=== PATIENT | male | born 1995 | race Caucasian/White ===

== ENCOUNTER 2016-04-11 06:59 | Emergency (ER) | payer OTHER ==
[~2016-04-11] VITALS: Ht 172.7 cm; Wt 118.0 kg
[2016-04-11 07:01] VITALS: TEMP 37.1; Ht 172.7 cm; Wt 118.0 kg
[2016-04-11] MEDS ORDERED: ACETAMINOPHEN 500 MG TAB PO STA (07:17)
[2016-04-11] MEDS ORDERED: IBUPROFEN 600 MG TAB PO STA (07:17)
--- NOTE | 2016-04-11 07:48 | DIAGNOSTIC IMAGING REPORT ---
L-SPINE MIN 4 VIEWS ROUTINE CLINICAL HISTORY: Low back pain COMPARISON STUDY: No previous studies for comparison. FINDINGS: There is no pathologic bowel dilatation. There is surgical clip within the right upper quadrant. There are 5 lumbar type vertebral bodies present. There is a grade 1 spondylolisthesis of L4 on L5. 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 There is disc space narrowing at the L4-5 level. IMPRESSION: 1. Grade 1 spondylolisthesis of L4 on L5. Equivocal L4 pars defect. 2. Disc space narrowing at the L4-5 level. 3. L5 limbus vertebra Electronically signed by: Les Sanchez M.D. 04/11/2016 7:47 AM Dictated Date/Time: 04/11/2016 7:45 AM
[2016-04-11 08:24] LABS: URINE APPEARANCE CLEAR (CLEAR); URINE BILIRUBIN NEG (NEG); URINE COLOR YELLOW; URINE EPITHELIAL CELL AUTO 20-30 /lpf (0-5); URINE NITRITE NEG (NEG); URINE PH 5.5 (4.5-7.5); URINE SPECIFIC GRAVITY 1.018 (1.000-1.030); UROBILINOGEN NEG (NEG); ZZUR CULT IF INDIC CLEAN CATCH YES
[2016-04-11 08:28] VITALS: BP 128/74; PULSE 78; O2SAT 99
[2016-04-11 08:28] LABS: MANUAL MICROSCOPIC REQUIRED? NO; REVIEW REQ? NO
--- NOTE | 2016-04-11 08:39 | EMERGENCY ROOM VISIT NOTE ---
History First contact with patient: 07:05 Chief Complaint: BACK PAIN Stated Complaint: BACK PAIN-KIDNEY AREA,NOSE BLEED History of Present Illness The patient is a 20 year old male who presents to the Emergency Room with complaints of low back pain for the past few days. The patient does not recall injury or trauma to explain his symptoms. He does not have numbness or paresthesias. He does not have a history of chronic low back pain. He does state that he has a history of urethral strictures and follows with urology. He states his urine has been more concentrated than normal and is concerned about a possible kidney infection. The patient has not had fever or dysuria. No chest pain, chest tightness, shortness of breath, or abdominal pain. The patient also states that he has had 2 small nosebleeds over the past 2 days of unknown significance. He rates his overall discomfort a 5/10 and is not taken anything [id number] for his discomfort. Review of Systems More than 10 systems were reviewed and otherwise negative with the exception of history of present illness. Past Medical/Surgical History No chronic medical disease Family History No pertinent family history Social History Smoking Status: Never Smoker Occupation Status: [employer] student Current/Historical Medications No Active Prescriptions or Reported Meds Allergies Coded Allergies: NO KNOWN DRUG ALLERGIES (Verified Allergy, Unknown, ., 12/13/15) Physical Exam Vital Signs Date Time Temp Pulse Resp B/P Pulse Ox O2 Delivery O2 Flow Rate FiO2 04/11/16 07:01 37.1 109 18 141/90 98 Room Air Physical Exam VITALS: Vitals are noted on the nurse's note and reviewed by myself. Vital signs stable. GENERAL: Well-developed, well-nourished, male, who is in no acute distress and resting comfortably. Patient is cooperative with the examination. HEAD: Normocephalic atraumatic. EARS: External ear normal. External auditory canals clear, tympanic membranes pearly coleman without erythema or effusion bilaterally. EYES: Pupils equal round and reactive to light and accommodation. Conjunctivae without injection, sclerae without icterus. Extraocular movements intact. NOSE: Patent, turbinates without inflammation or discharge. No epistaxis noted MOUTH: Mucous membranes moist. Tonsils are not enlarged. Pharynx without erythema, blood, or exudate. Uvula midline. Airway patent. NECK: Supple without nuchal rigidity. No lymphadenopathy. No thyromegaly. Cervical spine is nontender. HEART: Regular rate and rhythm without murmurs gallops or rubs. LUNGS: Clear to auscultation bilaterally without wheezes, rales or rhonchi. No retractions or accessory muscle use. ABDOMEN: Positive normal bowel sounds x 4. Soft, nontender, without masses or organomegaly. No guarding or rebound tenderness. No CVA tenderness. MUSCULOSKELETAL: No muscle atrophy, erythema, or edema noted. Full range of motion without joint tenderness in all extremities. Negative straight leg raise. No significant palpable tenderness. NEURO: Patient was alert and oriented to person place and time. CN II through XII grossly intact. Deep tendon reflexes 2+ throughout. Medical Decision & Procedures ER Provider Diagnostic Interpretation: L-SPINE MIN 4 VIEWS ROUTINE CLINICAL HISTORY: Low back pain COMPARISON STUDY: No previous studies for comparison. FINDINGS: There is no pathologic bowel dilatation. There is surgical clip within the right upper quadrant. There are 5 lumbar type vertebral bodies present. There is a grade 1 spondylolisthesis of L4 on L5. 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 There is disc space narrowing at the L4-5 level. IMPRESSION: 1. Grade 1 spondylolisthesis of L4 on L5. Equivocal L4 pars defect. 2. Disc space narrowing at the L4-5 level. 3. L5 limbus vertebra Laboratory Results Test 04/11/16 08:15 Medications Administered Medications (Trade) Dose Ordered Sig/Harpreet Route Start Time Stop Time Status Last Admin Dose Admin Acetaminophen (Tylenol Tab) 1,000 mg NOW STAT PO 04/11/16 07:17 04/11/16 07:18 DC 04/11/16 07:24 1,000 MG Ibuprofen (Motrin Tab) 600 mg NOW STAT PO 04/11/16 07:17 04/11/16 07:18 DC 04/11/16 07:23 600 MG ED Course Physical exam and history were performed. Nursing notes and EMR were reviewed. Patient appears to have both low back pain and concerns for a urinary tract/ kidney infection. The patient does not appear toxic on examination. He does not have CVA tenderness or neurologic deficit. He does not have a history of previous imaging. The patient was provided ibuprofen and Tylenol by mouth. Urinalysis was collected. X-ray was performed. The patient's x-ray does not show significant acute findings. He does appear to have grade 1 spondylolisthesis, and on conversation with the patient he has had intermittent back pain for the past 9 years. Urinalysis does not suggest UTI. Clinically I suspect his symptoms are muscular skeletal in nature and should improve with conservative management. The patient may wish to follow with his primary care physician or rheumatology. He was otherwise asked to use [id number] analgesics and was invited back to the ER with any new, worsening, or concerning symptoms. The chart was completed utilizing [employer] Speech Voice Recognition Software. Grammatical errors, random word insertions, pronoun errors, and incomplete sentences are an occasional consequence of this system due to software limitations, ambient noise, and hardware issues. Any formal questions or concerns about the content, text, or information contained within the body of this dictation should be directly addressed to the provider for clarification. . Medical Decision Differential diagnosis: Etiologies such as musculoskeletal, disc herniation, fracture, aortic disease, metastatic disease, cord compression, discitis, infection, renal colic, gastrointestinal, acute exacerbation of chronic back pain, sciatica, cauda equina, as well as others were entertained. Impression Primary Impression: Low back pain Additional Impression: Symptoms involving urinary system Departure Information Prescriptions No Active Prescriptions or Reported Meds Referrals No Doctor, Assigned (PCP) Patient Instructions My [facility] Problem Qualifiers
== END 2016-04-11 08:30 | disposition home or self-care (01) ==
LOC: C.EDB 07:00 → C.EDA 08:30
DX: M54.5 Low back pain (principal); R39.9 Unspecified symptoms and signs involving the genitourinary system

== ENCOUNTER 2016-04-11 18:00 | Emergency (ER) | payer OTHER ==
[~2016-04-11] VITALS: Ht 172.7 cm; Wt 119.9 kg
[2016-04-11 18:07] VITALS: TEMP 37.1; Ht 172.7 cm; Wt 119.9 kg
[2016-04-11] MEDS ORDERED: LORAZEPAM 0.5 MG TAB PO STA (18:25)
[2016-04-11 18:44] LABS: BASO % 0.3 %; BASO ABS # 0.03 K/uL (0-0.2); COMPLETE YES; EOS % 1.1 %; HEMATOCRIT 47.4 % (42-52); IG% 0.8 %; LYMPH % 29.3 %; LYMPH ABS # 3.27 K/uL (1.2-3.4); MEAN CORPUSCULAR HEMOGLOBIN 27.7 pg (25-34); MEAN PLATELET VOLUME 9.2 fL (7.4-10.4); NEUT % 63.5 %; PLATELET COUNT 305 K/uL (130-400); WHITE BLOOD COUNT 11.15 K/uL (4.8-10.8)
--- NOTE | 2016-04-11 18:57 | DIAGNOSTIC IMAGING REPORT ---
CHEST ONE VIEW PORTABLE HISTORY: Atypical Chest pain and dyspnea COMPARISON: None. FINDINGS: There are low lung volumes. The lungs are clear. The heart is normal in size. No pleural effusions. No pneumothorax. IMPRESSION: No acute process. Electronically signed by: Tc Ramírez M.D. 04/11/2016 6:55 PM Dictated Date/Time: 04/11/2016 6:54 PM
[2016-04-11 19:08] LABS: BLOOD UREA NITROGEN 10 mg/dl (7-18); BUN/CREATININE RATIO 10.3 (10-20); CALCIUM 8.9 mg/dl (8.5-10.1); CARBON DIOXIDE 26 mmol/L (21-32); CHLORIDE 103 mmol/L (98-107); SODIUM 138 mmol/L (136-145)
[2016-04-11 19:09] LABS: GLUCOSE 153 mg/dl (70-99)
[2016-04-11 20:17] LABS: MAGNESIUM 2.2 mg/dl (1.8-2.4); POTASSIUM 3.6 mmol/L (3.5-5.1)
--- NOTE | 2016-04-11 21:24 | EMERGENCY ROOM VISIT NOTE ---
History First contact with patient: 18:14 Chief Complaint: NOSE BLEED (MINOR) Stated Complaint: NOSE BLEED,HEART PAIN,ARM PAIN,LIGHT HEADED History of Present Illness The patient is a 20 year old male who presents to the Emergency Room via private vehicle with complaints of "nosebleed, heart pain, arm pain, lightheaded ". Patient states that he was here earlier today for back pain. He notes that is nearly resolved, and he went to his scheduled appointment with the infectious disease doctor for your plasma/STD check. He states that his blood pressure was elevated at that time with a systolic in the range of 150. He was told by the nurse that took the blood pressure that this was too high. He became concerned, and on his way in this direction stopped at a pharmacy and inquired about blood pressure with the pharmacist. He said that he was expressing nosebleeds, had a mild headache and high blood pressure in the pharmacist directed him towards the emergency department here today. Patient notes that he does have a history of generalized anxiety disorder, and shortly after talking with the pharmacist he is developed pressure on the left anterior chest,. He also had a nosebleed earlier today which is the third time total in the past 3 days. He feels as though his heart is weird inside his chest. He also notes his hands feel weird. He notes that he has had chest pain as far back as February, and has had 2 of these episodes. He also notes lightheadedness. There is been no trauma to the nose. He notes sometimes he will feel this way but notes he has never had an anxiety attack. Review of Systems A complete 10-point Review of Systems was discussed with the patient, with pertinent positives and negatives listed in the History of Present Illness. All remaining Review of Systems questions can be considered negative unless otherwise specified. Past Medical/Surgical History Skin problems, urinary problems. History of urinary stricture. Family History Diabetes, high blood pressure. Social History Smoking Status: Never Smoker Occupation Status: [employer] student Social History: Patient is a [employer] student, denies alcohol and tobacco use. Current/Historical Medications No Active Prescriptions or Reported Meds Allergies Coded Allergies: NO KNOWN DRUG ALLERGIES (Verified Allergy, Unknown, ., 04/11/16) Physical Exam Vital Signs Date Time Temp Pulse Resp B/P Pulse Ox O2 Delivery O2 Flow Rate FiO2 04/11/16 21:27 103 18 158/86 97 04/11/16 20:07 107 18 154/82 100 Room Air 04/11/16 18:07 37.1 110 18 143/93 98 Room Air Physical Exam VITAL SIGNS - Vital signs and nursing notes were reviewed. Patient is afebrile , slightly hypertensive at 143/93, he is tachycardic at a rate of 110 bpm, and is saturating well on room air at 98%. GENERAL -20-year-old male appearing his stated age who is in no acute distress. Patient is nontoxic in appearance, and communicates without difficulty. Ambulatory without difficulty. He converses with full sentences. There is no shortness of breath. Communicates well with provider and answers questions appropriately. SKIN - Without rashes. No petechial rashes. HEAD - NC/AT. EYES - PERRL with EOMI bilaterally. Sclera anicteric. Palpebral conjunctiva pink and moist with no injection noted. EARS - No deformities of external structures noted on gross examination bilaterally. No pain elicited with palpation of the tragus bilaterally. External auditory canals without discharge or otorrhea. Tympanic membranes pearly coleman without retraction or bulging. No fluid or purulent material visualized behind the TM. Handle of malleus, umbo, cone of light, pars tensa/ flaccid all easily visualized. NOSE - Midline and without cyanosis. No epistaxis or purulent drainage noted. There is dried blood inside left nostril. Septum midline without deviation or septal hematoma noted. MOUTH/OROPHARYNX - Without perioral cyanosis. Buccal mucosa pink and moist and without leukoplakia. Tongue midline with equal elevation of palate bilaterally. No tonsillar hypertrophy, erythema, or exudates noted. Good dentition noted. NECK - Neck with FROM. Supple to palpation. No lymphadenopathy noted. No nuchal rigidity. LUNGS - Chest wall symmetric without accessory muscle use, intercostals retractions, or central cyanosis. Normal vesicular breath sounds CTA B/L. No wheezes, rales, or rhonchi appreciated. CARDIAC - RRR with S1/S2. No murmur, rubs, or gallops appreciated. ABDOMEN - Abdominal contour without pulsations or visible masses. BS normoactive all four quadrants. No tenderness, palpable masses, hepatosplenomegaly, or ascites noted. EXTREMITIES - No clubbing or peripheral cyanosis. No pretibial edema present. + 5/5 strength noted in UE/LE bilaterally. NEUROLOGIC - Cranial nerves II through XII grossly intact. Sensory intact to light touch throughout. PSYCH - A&Ox3 and cooperates fully with examiner. Pt is very pleasant and interacts well with examiner. Medical Decision & Procedures ER Provider Diagnostic Interpretation: CHEST ONE VIEW PORTABLE HISTORY: Atypical Chest pain and dyspnea COMPARISON: None. FINDINGS: There are low lung volumes. The lungs are clear. The heart is normal in size. No pleural effusions. No pneumothorax. IMPRESSION: No acute process. Electronically signed by: Tc Ramírez M.D. 04/11/2016 6:55 PM Dictated Date/Time: 04/11/2016 6:54 PM Laboratory Results 04/11/16 18:33 Red Blood Count 6.00, Mean Corpuscular Volume 79.0, Mean Corpuscular Hemoglobin 27.7, Mean Corpuscular Hemoglobin Concent 35.0, Mean Platelet Volume 9.2, Neutrophils (%) (Auto) 63.5, Lymphocytes (%) (Auto) 29.3, Monocytes (%) (Auto) 5.0, Eosinophils (%) (Auto) 1.1, Basophils (%) (Auto) 0.3, Neutrophils # (Auto) 7.08, Lymphocytes # (Auto) 3.27, Monocytes # (Auto) 0.56, Eosinophils # (Auto) 0.12, Basophils # (Auto) 0.03 04/11/16 18:33 04/11/16 19:23 Test 04/11/16 18:33 04/11/16 18:48 04/11/16 19:23 White Blood Count 11.15 K/uL (4.8-10.8) Red Blood Count 6.00 M/uL (4.7-6.1) Hemoglobin 16.6 g/dL (14.0-18.0) Hematocrit 47.4 % (42-52) Mean Corpuscular Volume 79.0 fL (80-100) Mean Corpuscular Hemoglobin 27.7 pg (25-34) Mean Corpuscular Hemoglobin Concent 35.0 g/dl (32-36) Platelet Count 305 K/uL (130-400) Mean Platelet Volume 9.2 fL (7.4-10.4) Neutrophils (%) (Auto) 63.5 % Lymphocytes (%) (Auto) 29.3 % Monocytes (%) (Auto) 5.0 % Eosinophils (%) (Auto) 1.1 % Basophils (%) (Auto) 0.3 % Neutrophils # (Auto) 7.08 K/uL (1.4-6.5) Lymphocytes # (Auto) 3.27 K/uL (1.2-3.4) Monocytes # (Auto) 0.56 K/uL (0.11-0.59) Eosinophils # (Auto) 0.12 K/uL (0-0.5) Basophils # (Auto) 0.03 K/uL (0-0.2) RDW Standard Deviation 36.8 fL (36.4-46.3) RDW Coefficient of Variation 13.0 % (11.5-14.5) Immature Granulocyte % (Auto) 0.8 % Immature Granulocyte # (Auto) 0.09 K/uL (0.00-0.02) Anion Gap 9.0 mmol/L (3-11) Est Creatinine Clear Calc Drug Dose 145.8 ml/min Estimated GFR () 123.3 Estimated GFR (Non- 106.4 BUN/Creatinine Ratio 10.3 (10-20) Calcium Level 8.9 mg/dl (8.5-10.1) Creatine Kinase MB 1.0 ng/ml (0.5-3.6) Creatine Kinase MB Ratio (0-3.0) Bedside D-Dimer 153 ng/mlFEU (0-450) Bedside Troponin I 0.000 ng/ml (0-0.045) Magnesium Level 2.2 mg/dl (1.8-2.4) Total Creatine Kinase 134 U/L (39-308) Chemistry Specimen Hemolysis Medications Administered Medications (Trade) Dose Ordered Sig/Harpreet Route Start Time Stop Time Status Last Admin Dose Admin Lorazepam (Ativan Tab) 0.5 mg NOW STAT PO 04/11/16 18:25 04/11/16 18:27 DC 04/11/16 18:37 0.5 MG ED Course Patient was seen and evaluated as above. Thorough history and physical examination were obtained. Patient medicated with 0.5 mg of Ativan, history of generalized anxiety disorder. Cardiac/emergent workup reveals no acute process. Patient was feeling better. Patient discharged home. Medical Decision Patient was seen and evaluated as above. After obtaining a thorough history and physical examination previous visits were reviewed, and it was noted the patient was here just earlier today. Because the patient stated complaint of chest pain, I was concerned for potential cardiac/acute pulmonary cause. Patient does have a history of generalized anxiety disorder and this does certainly appear to be an exacerbation of this. Patient is stable at this time. The above workup was initiated. CBC reveals minimal leukocytosis, no anemia, [id number] d-dimer negative. CMP reveals no slight abnormality. Creatinine glucose elevated at 153. Point care troponin negative 2. EKG reveals sinus tachycardia rate of 113 bpm, without ectopy or ischemic change. With the negative troponin, no ectopy or ischemic change on EKG, no previous for comparison, and normal d-dimer did not appreciate any acute process. Chest 1 view was within normal limits. No evidence of pneumonia, pneumothorax or effusion. Patient was medicated with 0.5 mg of Ativan, which did provide some relief. Patient was reevaluated many times and noted to be concerned about his IV about how it was painful, I spoke with him about this he notes that it was just uncomfortable but agreed to leave it in. After the above workup was initiated the patient noted that he was feeling well he just had a slight headache with a little bit of dizziness upon sitting up from the bed. I suspect the patient is likely still experiencing little bit of anxiety, and with an established diagnosis of generalized anxiety disorder believe this is certainly the cause. He was instructed to follow-up with [facility], and indicated that he has an appointment tomorrow morning at 8:30. I encouraged him to keep this appointment. He was noted to be slightly hypertensive upon his departure, and I feel that follow-up tomorrow with [facility] is appropriate for potential repeat of blood pressure as medication may be appropriate in the outpatient setting. He was educated upon worrisome symptoms in which to return, had questions answered prior to discharge and was discharged home in good condition. He was sent home , mentating well with an Uber. In evaluation treatment this patient following differential diagnoses were entertained: Acute coronary syndrome, ME, PE, anxiety, among others. Impression Primary Impression: Epistaxis Additional Impression: Chest wall discomfort Departure Information Dispostion Home / Self-Care Condition GOOD Prescriptions No Active Prescriptions or Reported Meds Referrals Jessica Abraham M.D. (PCP) Patient Instructions My [facility] Additional Instructions You were seen in the emergency Department for nosebleed, heart pain, arm pain, lightheaded. Your heart chemicals here were normal x2. Your D dimer was negative. Your EKG was good. You've received Ativan here. It is illegal for you to drive this evening. Please follow-up with [facility] first thing tomorrow morning at your appointment. Please have your blood pressure repeated, it was elevated here as we discussed. Please return to emergency department with any new/concerning symptoms. Problem Qualifiers
[2016-04-11 21:27] VITALS: BP 158/86; PULSE 103; O2SAT 97
== END 2016-04-11 21:27 | disposition home or self-care (01) ==
LOC: C.EDB 18:01 → C.EDD 21:27
DX: R04.0 Epistaxis (principal); R07.89 Other chest pain

== ENCOUNTER → 2016-04-11 | Outpatient (CLI) | payer OTHER ==
[2016-04-12 23:28] LABS: HERPES SIMPLEX AB IGG-1 3.17; HSV1 AB IGM Negative (Negative); HSV2 AB IGM Negative (Negative)
== END | disposition home or self-care (01) ==
LOC: C.LAB1850 09:59
PROVIDERS: ATTEND Internal Medicine Infectious Disease
DX: N48.9 Disorder of penis, unspecified (principal)